=== PATIENT | male | born 1960 | race Caucasian/White ===

== ENCOUNTER → 2016-08-20 | Outpatient (CLI) | payer OTHER ==
[2016-08-20 11:03] LABS: CH 30.1; CHCM 34.2; HCT 43.5 % (39.0-53.0); HDW 2.43; HGB 14.7 gm/dL (13.0-17.5); MCH 29.9 pg (25.0-35.0); MCHC 33.9 g/dL (31.0-37.0); Mean Platelet Volume 7.5; RBC 4.93 m/uL (4.30-5.90); RDW 12.8 % (11.5-15.5); WBC 7.8 k/uL (3.8-10.6)
[2016-08-20 11:06] LABS: Anion Gap 11 mmol/L; Blood Urea Nitrogen 14 mg/dL (9-20); Carbon Dioxide 24 mmol/L (22-30); Chloride 105 mmol/L (98-107); Non-African American GFR(MDRD) 51 (>60 ml/min/1.73 sqM); Potassium 4.2 mmol/L (3.5-5.1); Sodium 140 mmol/L (137-145)
[2016-08-20 11:25] LABS: MCV 88.4 fL (80.0-100.0)
== END | disposition home or self-care (01) ==
LOC: LABWHC1 10:22
PROVIDERS: ATTEND Internal Medicine Interventional Cardiology
DX: I73.9 Peripheral vascular disease, unspecified (principal)
CPT/HCPCS: 80051; 82565; 84520; 85027

== ENCOUNTER 2016-08-24 06:21 | Day surgery (SDC) | payer BC, OTHER ==
[2016-08-23 10:26] VITALS: BMI 25.1
[2016-08-24] MEDS ORDERED: SODIUM CHLORIDE 0.9% 1,000 ML in EMPTY BAG 1 BAG IV ONE (06:22)
[2016-08-24] MEDS ORDERED: LISINOPRIL 20 MG TAB PO STA (06:53)
[2016-08-24] MEDS ORDERED: CILOSTAZOL 100 MG TAB PO STA (06:54)
[2016-08-24] MEDS ORDERED: LEVOTHYROXINE 50 MCG TAB PO ONE (07:00)
[2016-08-24] MEDS ORDERED: ALPRAZolam 0.25 MG TAB PO ONE (07:00)
[2016-08-24] MEDS ORDERED: ASPIRIN 325 MG TAB PO ONE (07:00)
[2016-08-24 07:09] VITALS: RESP 16; TEMP 97.8
[2016-08-24] MEDS: MIDAZOLAM 2 MG/2 ML VIAL IV ONE ×2 (08:02→08:04)
[2016-08-24] MEDS ORDERED: LIDOCAINE 2% INJ 20 MG/ML SQ ONE (08:04)
[2016-08-24] MEDS: VERAPAMIL SYRINGE (5 MG/10 ML) INTRAARTER ONE ×2 (08:08→08:19)
[2016-08-24] MEDS ORDERED: IODIXANOL 320 MG/ML 100 ML INTRAARTER ONE (08:19)
[2016-08-24] MEDS ORDERED: SODIUM CHLORIDE 0.9% 1,000 ML IV SCH (08:30)
[2016-08-24] MEDS ORDERED: CILOSTAZOL 100 MG TAB PO SCH (09:00)
--- NOTE | 2016-08-24 12:08 | IR ---
Fluoroscopy HISTORY: Pain in right leg 1.7 minutes fluoroscopy time supplied to the referring clinician. 121 intraoperative C-arm images do cument the procedure. See dictated report from cardiology.
[2016-08-24 13:26] VITALS: BP 101/62; PULSE 56
--- NOTE | 2016-08-25 09:19 | PCN ---
DATE OF PROCEDURE: 08/24/16 PERFORMING PHYSICIAN: Allen Barclay M.D. trolley collector. PROCEDURE PERFORMED: 1. Abdominal aortogram. 2. Bilateral lower extremity runoff. INDICATIONS: This is a pleasant 56 year old gentleman who sees Dr. Reynolds as an outpatient who was experiencing bilateral lower extremity discomfort. He underwent an arterial duplex study which showed severe PAD involving the right superficial femoral artery. The patient was brought today to undergo an abdominal aortogram and bilateral lower extremity runoff. APPROACH: Right radial artery. COMPLICATIONS: None. LEVEL OF SEDATION: Moderate with a sedation length of about 20 minutes. PROCEDURE DESCRIPTION: After obtaining informed consent, the patient was brought to the cardiac cathodic protection technician. The right radial artery was cannulated using micropuncture technique. The micropuncture wire passed easily, then I placed a 5 Algerian sheath in the right radial artery. Subsequently I did an abdominal aortogram and bilateral lower extremity runoff using 5 Algerian pigtail catheter which was initially placed at the level of the renal artery. Then it was advanced into above the bifurcation of the aorta to right and left common iliac arteries. The procedure was completed without any complications. PERIPHERAL ANGIOGRAM: 1. The aorta appeared to have mild disease only. 2. The common iliac arteries: The right and left common iliac arteries appeared to have mild disease only. 3. The internal iliac arteries: The right and left internal iliac arteries are patent. 4. The external iliac arteries: The right external iliac artery appeared to have a lesion seems to be in the range of 50-60%. The left external iliac artery appeared to be angiographically normal. 5. The common femoral arteries: The right and left common femoral arteries are angiographically normal. 6. The profunda: The right and left profunda are patent. 7. The SFA: The right SFA is occluded on short segment in the mid portion and left SFA is patent. 8. Popliteal: The right and left popliteal are patent. 9. Below the knee: Below the knee there are three vessel runoff below the knee bilaterally. CONCLUSION: 1. Intermediate disease involving the right external iliac artery. 2. Occluded right SFA. POSTPROCEDURE MANAGEMENT: 1. PROCESS LINE OPERATOR of the right SFA. 2. Further assessment of the right external artery with selective injection. 3. Follow up with the patient. VANNA
== END 2016-08-24 13:27 | disposition home or self-care (01) ==
LOC: CATHCVL 06:21
PROVIDERS: ATTEND Internal Medicine Interventional Cardiology
DX: I77.9 Disorder of arteries and arterioles, unspecified (principal); I73.9 Peripheral vascular disease, unspecified; I10 Essential (primary) hypertension; E78.5 Hyperlipidemia, unspecified; F17.210 Nicotine dependence, cigarettes, uncomplicated; Z79.82 Long term (current) use of aspirin; Z79.899 Other long term (current) drug therapy
CPT/HCPCS: 36200; 75625; 75716; 99152; C1894; J2001; J2250; Q9967; J1644

== ENCOUNTER → 2016-08-27 | Outpatient (CLI) | payer OTHER ==
[~2016-08-27] MED LIST: ALPRAZolam 0.25 MG TAB ONE; ASPIRIN 325 MG TAB ONE
--- NOTE | 2016-08-27 15:04 | MR ---
EXAMINATION TYPE: MR lumbar spine wo con DATE OF EXAM: 08/27/2016 COMPARISON: 06/06/2013 HISTORY: 56-year-old male lumbar disk deg, low back pain TECHNIQUE: Multiplanar, multisequence images of the lumbar spine were acquired. FINDINGS: Vertebral body heights are preserved. There is a component of mild congenital spinal canal stenosis within the lumbar spine with AP canal d imension of 1.2 cm. Conus medullaris is normal. Facet arthropathy mid to lower lumbar spine. There is new grade 1 retrolisthesis at L3-L4. Worsening multilevel degenerative disc disease with progressive disc desiccation and moderate disc he ight loss as well as diffuse disc bulges. Posterior annular fissures now seen at L2-L3, L3-L4, and L5-S1. Bulging discs have increased. At T12-L1, no spinal canal or foraminal stenosis. At L1-L2, there is a new broad-based posterior disc protrusion that mildly narrows the spinal canal. There is mild bilateral inferior foraminal narrowing. At L2-L3, there is diffuse disc bulge ligamentum flavum thickening with facet degenerative change. Th is circumferentially narrows the spinal canal without significant spinal canal stenosis. Changes resu lt in course and moderate bilateral neuroforaminal stenosis. At L3-L4, there is grade 1 retrolisthesis with facet arthropathy and ligamentum flavum thickening. In creasing disc bulge superimposed on the congenital canal narrowing. There is overall mild spinal afia l stenosis with worsening moderate right and moderate to severe left neuroforaminal stenosis. At L4-L5, worsened diffuse disc bulge. Facet arthropathy. There is similar moderate right and moderat e-to-severe left neuroforaminal stenosis though there is interval progression in sclerotic Modic type II endplate changes towards the left. Similar moderate type II fatty endplate change towards the rig ht. Disc material may abut both traversing L5 nerve roots at this level. Moderate spinal canal stenos is. At L5-S1, diffuse disc bulge with facet arthropathy. There is similar moderate left and hkha-pd-baslc ate right neuroforaminal stenosis without spinal canal stenosis. Atretic upper pole right kidney with a tiny cysts. No prevertebral or paravertebral soft tissue abnor mality otherwise seen. IMPRESSION: 1. Worsening, now moderate multilevel degenerative disc disease. There is new sclerotic endplate cowan ge towards the left at L4-L5 and increasing size of diffuse disc bulges superimposed on congenital sp inal canal stenosis. 2. The overall changes results in accentuated mild spinal canal stenosis at L1-L2, L2-L3, L3-L4, and moderate at L4-L5. These are worsened as compared to 06/06/2013. 3. Variable neuroforaminal stenoses as outlined above. Disc material at L4-L5 may abut both traversin g L5 nerve roots.
== END | disposition home or self-care (01) ==
LOC: RADMRIMAIN 12:06
PROVIDERS: ATTEND Family Medicine
DX: M48.06 Spinal stenosis, lumbar region (principal); M99.73 Connective tissue and disc stenosis of intervertebral foramina of lumbar region; M51.26 Other intervertebral disc displacement, lumbar region; M51.36 Other intervertebral disc degeneration, lumbar region
CPT/HCPCS: 72148

== ENCOUNTER → 2016-09-30 | Outpatient (CLI) | payer BC, OTHER ==
[2016-09-30 14:58] LABS: CH 31.2; CHCM 33.8; HCT 44.6 % (39.0-53.0); HDW 2.35; HGB 14.8 gm/dL (13.0-17.5); MCH 30.8 pg (25.0-35.0); MCHC 33.3 g/dL (31.0-37.0); MCV 92.8 fL (80.0-100.0); Mean Platelet Volume 7.9; RBC 4.81 m/uL (4.30-5.90); RDW 13.9 % (11.5-15.5); WBC 7.9 k/uL (3.8-10.6)
[2016-09-30 15:15] LABS: Anion Gap 7 mmol/L; Blood Urea Nitrogen 17 mg/dL (9-20); Carbon Dioxide 26 mmol/L (22-30); Chloride 106 mmol/L (98-107); Non-African American GFR(MDRD) 52 (>60 ml/min/1.73 sqM); Potassium 4.5 mmol/L (3.5-5.1); Sodium 139 mmol/L (137-145)
== END | disposition home or self-care (01) ==
LOC: LABPAT 14:31
PROVIDERS: ATTEND Internal Medicine Interventional Cardiology
DX: Z01.812 Encounter for preprocedural laboratory examination (principal); I73.9 Peripheral vascular disease, unspecified
CPT/HCPCS: 80051; 82565; 84520; 85027

== ENCOUNTER 2016-10-13 12:56 | Observation (INO) | payer OTHER ==
[2016-10-11 10:40] VITALS: BMI 24.2
[~2016-10-13 12:56] MED LIST changes: -ALPRAZolam 0.25 MG TAB ONE; -ASPIRIN 325 MG TAB ONE; +ASPIRIN 325 MG TAB PO ONE; +SODIUM CHLORIDE 0.9% 1,000 ML in EMPTY BAG 1 BAG IV ONE
[2016-10-13] MEDS ORDERED: niCARdipine 25 MG/10 ML VIAL ONE (14:54)
[2016-10-13] MEDS ORDERED: MIDAZOLAM 2 MG/2 ML VIAL IVP ONE (15:05)
[2016-10-13] MEDS ORDERED: LIDOCAINE 2% INJ 20 MG/ML SQ ONE (15:09)
[2016-10-13] MEDS ORDERED: HEPARIN SODIUM 1,000 UN/ML (10ML VL) IV ONE (15:14)
[2016-10-13] MEDS: MIDAZOLAM 2 MG/2 ML VIAL IVP ONE ×2 (15:21→16:05)
[2016-10-13] MEDS: HYDROmorphone 2 MG/ML 1 ML SYRINGE IVP ONE ×2 (15:45→16:23)
[2016-10-13] MEDS ORDERED: HEPARIN SODIUM 1,000 UN/ML (10ML VL) MISCELLANE ONE (16:19)
[2016-10-13] MEDS ORDERED: CLOPIDOGREL 75 MG TAB PO ONE (16:22)
[2016-10-13] MEDS ORDERED: NITROGLYCERIN 1000MCG/10ML SYRINGE INTRAARTER ONE (16:44)
[2016-10-13] MEDS ORDERED: niCARdipine Syringe (1,000 mcg/10 mL) INTRAARTER ONE (16:45)
[2016-10-13] MEDS ORDERED: IODIXANOL 320 MG/ML 100 ML INTRAARTER ONE (16:49)
[2016-10-13] MEDS ORDERED: SODIUM CHLORIDE 0.9% 1,000 ML IV SCH (17:00)
[2016-10-13] MEDS ORDERED: ONDANSETRON 4 MG/2 ML VIAL ONE (17:54)
[2016-10-13] MEDS ORDERED: ONDANSETRON 4 MG/2 ML VIAL IVP STA (18:17)
[2016-10-13] MEDS ORDERED: HYDROmorphone 1 MG/ML 1 ML SYRINGE IVP PRN ×2 (19:38)
[2016-10-13 20:38] LABS: Basophils # (A) 0.1 k/uL (0-0.2); Basophils % (A) 1 %; CH 30.2; CHCM 34.8; Eosinophils # (A) 0.1 k/uL (0-0.7); Eosinophils % (A) 1 %; HCT 39.4 % (39.0-53.0); HDW 2.39; HGB 14.2 gm/dL (13.0-17.5); Luc # (Auto) 0.14; Luc % (Auto) 1; Lymphocytes # (A) 1.6 k/uL (1.0-4.8); Lymphocytes % (A) 13 %; MCH 31.4 pg (25.0-35.0); Mean Platelet Volume 7.3; Monocytes # (A) 0.5 k/uL (0-1.0); Monocytes % (A) 4 %; Neutrophils # (A) 10.1 k/uL (1.3-7.7); Neutrophils % (A) 81 %; RBC 4.52 m/uL (4.30-5.90); RDW 12.8 % (11.5-15.5); WBC 12.5 k/uL (3.8-10.6); WBC (Perox) 12.79
[2016-10-13 20:40] LABS: MCV 87.1 fL (80.0-100.0)
[2016-10-13 20:52] LABS: Anion Gap 6 mmol/L; Blood Urea Nitrogen 16 mg/dL (9-20); Carbon Dioxide 24 mmol/L (22-30); Chloride 107 mmol/L (98-107); Glucose 122 mg/dL (74-99); Non-African American GFR(MDRD) >60 (>60 ml/min/1.73 sqM); Potassium 4.1 mmol/L (3.5-5.1); Sodium 137 mmol/L (137-145)
[2016-10-13] MEDS ORDERED: ATORVASTATIN 80 MG TAB PO SCH (21:00)
[2016-10-13] MEDS ORDERED: ATROPINE SULFATE 0.1 MG/ML 10ML SYRINGE ONE (21:49)
[2016-10-13] MEDS ORDERED: ONDANSETRON 4 MG/2 ML VIAL IVP PRN (22:07)
[2016-10-14 06:07] LABS: Non-African American GFR(MDRD) >60 (>60 ml/min/1.73 sqM)
[2016-10-14] MEDS ORDERED: LEVOTHYROXINE 50 MCG TAB PO SCH (06:30)
[2016-10-14] MEDS: LISINOPRIL 20 MG TAB PO SCH ×2 (06:54→08:46)
--- NOTE | 2016-10-14 08:04 | IR ---
EXAMINATION TYPE: IR stent intravas non coronary DATE OF EXAM: 10/13/2016 COMPARISON: NONE HISTORY: Peripheral vascular occlusive disease. Fluoroscopy was provided to the referring clinician. See dictated report from cardiology.
[2016-10-14 08:58] VITALS: BP 126/75; PULSE 70; RESP 20; TEMP 97.8
[2016-10-14] MEDS ORDERED: ASPIRIN 325 MG TAB PO SCH (09:00)
[2016-10-14] MEDS ORDERED: CLOPIDOGREL 75 MG TAB PO SCH (09:00)
--- NOTE | 2016-10-15 10:04 | OP ---
OPERATIVE REPORT Date of Surgery: DATE OF SERVICE: 10/14/2016. PERFORMING PHYSICIAN: Allen Barclay MD, driver examiner. PROCEDURE PERFORMED: 1. Selective right [id number] angiogram. 2. Selective right superficial femoral artery angiogram. 3. Selective left common femoral artery angiogram. 4. Atherectomy of the right superficial femoral artery using the Turbo Hawk device with extraction of plaque. 5. Successful balloon angioplasty of the right superficial femoral artery. 6. Successful stenting of the mid right superficial femoral artery using the 5.5 x 60 Supera stent with good angiographic results. 7. Successful stenting of the very proximal right superficial femoral artery using 6.0 x 40 Zilver PTX drug coated stent with good angiographic result. INDICATION: This is a very pleasant 56-year-old gentleman who sees Dr. Reynolds as an outpatient, who was experiencing right leg discomfort consistent with intermittent claudication. He underwent a peripheral angiogram which showed occluded right SFA in the mid portion and severe disease involving the proximal SFA. He was brought today to undergo an intervention. APPROACH: Left common femoral artery. COMPLICATIONS: None. LEVEL OF SEDATION: Moderate, 1 hour and 47 minutes. PROCEDURE DESCRIPTION: After obtaining informed consent, the patient was brought to the cardiac laborer filter plant. The left common femoral artery was cannulated using micropuncture technique under ultrasound guidance. The micropuncture passed easily. Then I placed a 6-Sudanese sheath in the left common femoral artery. Subsequently I did select the right SFA using an 0.35 advantage wire with the support of a 5-Sudanese rim catheter. After that, I did exchange my 6-Sudanese 11 cm sheath into a 6-Sudanese 70 cm sheath over the Advantage wire, and the tip of the sheath was positioned in the right common femoral artery. Anticoagulation was initiated using heparin, the patient was given weight based heparin but during the procedure we found out that the patient was did not receive the heparin because of the IV connection. He was given, at that point, 10,000 units of heparin IA. Subsequently I was able to cross the chronic total occlusion of the right SFA using 0.18 gold tip Glidewire with the backup support of 0.18 CXI catheter. I did prove that I was in the true lumen by injecting contrast through the catheter. After that, I did arterectomy within the CXI using the Turbo Hawk device. After that, I did balloon angioplasty initially using 4.0 x 120 mm regular balloon. Subsequently I did use 5.0 x 100 AngioSculpt balloon. Both balloons were inflated under their nominal pressure. After that, I did inflate 5.0 x 120 drug-coated balloon in the mid right SFA. The balloon was inflated to its nominal pressure for 3 minutes. The following angiogram showed what seems to be dissection/thrombus involving the mid to distal right SFA. I decided to cover that with a stent so I did deploy a 5.5 x 16 mm Supera stent. After that, I did balloon angioplasty on the distal edge of the stent using 5.0 x 40 mm balloon. The following angiogram showed good angiographic results. For the lesion in the very proximal right SFA, I did balloon angioplasty using 5.0 x 40 mm balloon again. The following angiogram showed dissection involving that segment, which I again decided to cover that with a stent, so I did deploy 6.0 x 40 Zilver PTX where the stent was positioned under fluoroscopic guidance and deployed under fluoroscopic guidance as well. I postdilated the stent using the 5.0 mm balloon. Following angiogram showed good angiographic results. The procedure was completed without any complication. After that, I did exchange my 70 cm 6-Sudanese sheath to 6-Sudanese 11 cm sheath over the Advantage wire. The procedure was completed without any complications. POSTPROCEDURE MANAGEMENT: 1. Dual anti-platelet therapy. 2. Risk factor modifications. 3. Follow up with the patient. MMBRITTNEY / NATALIAN: [id number] /
--- NOTE | 2016-10-15 18:55 | DS ---
DISCHARGE SUMMARY ADMISSION DATE: October 13, 2016. DISCHARGE DATE: October 14, 2016. BRIEF HISTORY: This is a pleasant 66-year-old gentleman who sees Dr. Reynolds as an outpatient. Was admitted to the hospital yesterday and underwent a successful crossing of chronic total occlusion of the right superficial femoral artery along with successful angioplasty. The procedure was performed from the left groin which is soft, nontender, and without any bruits. By the end of the procedure. I was able to feel bounding pulse in the right dorsalis pedis. The patient is going to be discharged home on dual anti-platelet therapy and statin and he follow up with Dr. Reynolds as an outpatient. MMODL / IJN: [id number] /
== END 2016-10-14 09:06 | disposition home or self-care (01) ==
LOC: CATHCVL 12:56 → 6SEL 16:54 → CATHCVL 10-14 00:23 → 6SEL 10-14 00:24
PROVIDERS: ADMIT Internal Medicine Interventional Cardiology; ATTEND Internal Medicine Interventional Cardiology
DX: I70.211 Atherosclerosis of native arteries of extremities with intermittent claudication, right leg (principal); I70.92 Chronic total occlusion of artery of the extremities; E78.5 Hyperlipidemia, unspecified; I10 Essential (primary) hypertension; Z79.899 Other long term (current) drug therapy; Z79.82 Long term (current) use of aspirin
CPT/HCPCS: 37227; 80048; 82565; 85025; 99152; 99153 ×6; G0378; C1769 ×7; C1894 ×2; C1725 ×3; C1714; C2623; C1876; C1874; J2001; J2250; J1170 ×2; Q9967; J2405; J1644

== ENCOUNTER → 2016-10-19 | Outpatient (CLI) | payer BC, OTHER ==
[2016-10-19 10:17] VITALS: BP 127/69; PULSE 54; RESP 16; TEMP 97.9
--- NOTE | 2016-10-19 10:42 | P.PN ---
Progress Note - Text This is a 56-year-old male with significant peripheral vascular disease and recent placement of a stent in the right iliac artery. The patient was then started on Plavix. He does complain of lower back pain and right hip pain. He used to have right leg pain however he does not have any leg pain at this point he also denies any paresthesia in the right lower extremity. Recently he had an MRI done on the lumbar spine which showed lumbar facet arthropathy and disc bulging with neural foraminal stenosis at the L4 5 level mostly. His pain gets worse by standing and walking for long distances. He does have tenderness in the lumbar paravertebral area bilaterally. There is no greater trochanter tenderness on the right side. Internal and external rotation of the right hip joint did not elicit any pain. At this point I think the patient has lower back pain due to lumbar spondylosis and facet osteoarthropathy there are no signs or symptoms for lumbar radiculopathy at this point. He may benefit from getting lumbar medial branch block bilaterally under fluoroscopic guidance. The patient was check with Dr. delgado placed the iliac artery stent in to see how soon it would be safe to hold Plavix for 5 days before this procedure. Meanwhile the patient takes Motrin 800 mg for his pain which does not control his pain well as he states and I told him also a combination of Motrin and Plavix may not be recommended because of the blood thinning effect of Motrin however he has to check with Dr. Terry and if he is okay with that this would be fine. I'll give him prescription for only 20 pills of tramadol to try for severe uncontrolled pain. The patient admits to using marijuana and I told him that this prescription will be only for 1 time until we start the process of the diagnostic procedure mentioned above on his lower back. PQRS measures: 1-Patient's medications are documented in the chart. 2-Tobacco use is positive, counseling given 3-Patient has not had a pneumococcal vaccine. 4-Advanced care planning discussed, patient unable to give 5-no Opioid contract was signed with the patient. 6-Pain positive, follow-up visit or procedure scheduled 7-Patient's blood pressure measured and documented within normal limits. 8-Patient's weight was measured, and body mass index ABOVE the normal limits, and counseling was done. Patient instructed to follow up with PCP. 9-Patient WAS NOT identified as an unhealthy alcohol user. Time with Patient: Greater than 30
== END ==
LOC: PNWHC3 09:48
PROVIDERS: ATTEND Anesthesiology
DX: M47.816 Spondylosis without myelopathy or radiculopathy, lumbar region (principal); M46.86 Other specified inflammatory spondylopathies, lumbar region
CPT/HCPCS: 99211

== ENCOUNTER 2017-03-11 04:11 | Observation (INO) | payer OTHER ==
[2017-03-11] MEDS ORDERED: SODIUM CHLORIDE 0.9% 1,000 ML IV SCH (05:00)
[2017-03-11 05:12] VITALS: BMI 23.3
[2017-03-11 05:19] VITALS: RESP 18
[2017-03-11] MEDS ORDERED: LISINOPRIL 20 MG TAB PO SCH (12:00)
[2017-03-11] MEDS ORDERED: CLOPIDOGREL 75 MG TAB PO SCH (12:00)
[2017-03-11] MEDS ORDERED: ASPIRIN 325 MG TAB PO SCH (12:00)
[2017-03-11] MEDS ORDERED: LEVOTHYROXINE 50 MCG TAB PO SCH (12:00)
--- NOTE | 2017-03-11 12:33 | HP ---
HISTORY AND PHYSICAL The patient is a pleasant 56-year-old white male who was recently seen in the emergency department at [facility]. He was found to be obtunded and taken in via ambulance to this facility. The patient had an altered mental status course after apparently eating a brownie like substance that was apparently made of cannabis. The patient is not known to have food of the substance and became very lethargic and sick to his stomach. He then began to pass out. He has never ingested things like this before. PAST MEDICAL HISTORY: Patient's past medical history is significant for GI bleed, hyperlipidemia, hypertension, hemorrhoids, Raynaud's disease. PAST SURGICAL HISTORY: His past surgical history is colonoscopy, appendectomy, tonsils and adenoids, hernia repair. SOCIAL: Positive for tobacco and history of marijuana use and currently ingestion marijuana. HOME MEDICATIONS: and Vasotec. ALLERGIES: No known drug allergies. REVIEW OF SYSTEMS: Denies any shortness of breath, chest pain, nausea, or vomiting. He denies any stroke or paralysis. Denies any muscle weakness or pain. He denies any diabetes. The rest of the review of systems is unremarkable. FAMILY HISTORY: Denies any family history. He admits to vascular disease in the right lower extremity with stent. PHYSICAL EXAM: The patient is alert and orientated x3. He is answering all questions appropriately at this time. Home medications include Synthroid, Vasotec, Plavix, Lipitor, and aspirin. HEENT: Head is normocephalic, atraumatic. NECK: Supple. No JVD. HEART: Regular rate and rhythm. LUNGS: Clear to auscultation. ABDOMEN: Soft, nontender. No rebound, rigidity, guarding. EXTREMITIES: No cyanosis, clubbing or jaundice. NEUROLOGICAL: Cranial nerves 2 through 12 grossly intact without any lateralizing deficits. He is alert and orientated x3. He is following commands. Tongue is midline without shift. IMPRESSIONS: 1. Acute altered mental status. 2. Peripheral vascular disease. 3. Hyperlipidemia. 4. Hypothyroidism. 5. Coronary artery disease and cardiovascular disease. 6. Ingestion of cannabis with altered mental status. PLAN: Plan is to admit patient for 23 hour observation. Neurological consultation to rule out any type of TIA. The patient seems to be back to baseline if cleared the patient may be able to go home today. The patient had some workup done at [facility] including blood work, CT scan, and cardiac monitoring. We will obtain copies of that for consultation. MMODL / IJN: [id number] /
[2017-03-11 16:27] VITALS: BP 119/72; PULSE 58; TEMP 97.5
[2017-03-11] MEDS ORDERED: ATORVASTATIN 80 MG TAB PO SCH (21:00)
--- NOTE | 2017-03-11 23:11 | P.CNNES ---
History of Present Illness Consult date: 03/11/17 Requesting physician: Edmund Barr Reason for Consult: TIA Chief complaint: Altered Mental Status History of Present Illness: Neurology is consulting on a 56 year old male who was transferred to [facility] from [facility]. Patient was found obtunded at home after eating a "brownie-like" substance that reportedly included cannabis. Patient also smoke marijuana as well within a few hours of eating the brownies. Patient is a medical marijuana card pike and engages in regular cannabis use. Patient had extensive workup and imaging at [facility]. Paper copies of chart and results were reviewed. On contact, the patient was seated upright in bed in no acute distress. Patient was AOx3 interactive and appropriate. Patient immediately stated that he would not stay for furhter testing if he had to remain in [facility] after another 90 minutes due to a birthday libertarian for a friend. Patient was explained that he would need further medical workup and observation. Review of Systems All systems not noted in HPI are negative. Past Medical History Past Medical History: COPD, Hyperlipidemia, Hypertension, Thyroid Disorder Additional Past Medical History / Comment(s): hemorrhoids, back pain, Raynaud's , PVD History of Any Multi-Drug Resistant Organisms: None Reported Past Surgical History: Adenoidectomy, Appendectomy, Hernia Repair, Tonsillectomy Additional Past Surgical History / Comment(s): bilateral hernia repair, RIGHT CAROTID ANGIOPLASTY, PTCA to right femoral artery 09/2016 Past Anesthesia/Blood Transfusion Reactions: No Reported Reaction Date of Last Stent Placement:: 10/13/2016 Past Psychological History: No Psychological Hx Reported Smoking Status: Current every day smoker Past Alcohol Use History: None Reported Additional Past Alcohol Use History / Comment(s): STARTED SMOKING AT AGE 16 SMOKES 1- 1 1/2 PPD Past Drug Use History: Marijuana Additional Drug Use History / Comment(s): DAILY USE, INSTRUCTED NOT TO USE 24 HRS PRIOR TO PROCEDURE -HAS MEDICAL CARD - Past Family History Father Family Medical History: Cancer Mother Family Medical History: No Reported History Medications and Allergies Home Medications Medication Instructions Recorded Confirmed Type Enalapril [Vasotec] 20 mg PO BID 06/22/13 03/11/17 History Aspirin 325 mg PO DAILY 08/23/16 03/11/17 History Atorvastatin [Lipitor] 80 mg PO HS 08/23/16 03/11/17 History Levothyroxine Sodium [Synthroid] 50 mcg PO DAILY 08/23/16 03/11/17 History Clopidogrel [Plavix] 75 mg PO DAILY #90 tab 10/14/16 03/11/17 Rx Allergies Allergy/AdvReac Type Severity Reaction Status Date / Time No Known Allergies Allergy Verified 03/11/17 07:46 Physical Examination - Vital Signs Vital Signs: Vital Signs Temp Pulse Resp BP Pulse Ox 03/11/17 16:00 97.5 F L 58 L 18 119/72 98 03/11/17 11:42 97.7 F 59 L 18 113/54 98 03/11/17 08:00 97.6 F 54 L 18 112/49 98 03/11/17 05:19 97.7 F 54 L 18 109/52 96 03/11/17 05:00 47 L 16 Intake and Output 03/11/17 03/11/17 03/12/17 14:59 22:59 06:59 Intake Total 480 Balance 480 Intake: Oral 480 Other: Voiding Method Urinal General appearance: Alert, no apparent distress. Head: Atraumatic, normocephalic, normal inspection Eyes: Well appearance, PERRLA, EOMI. Absent scleral icterus, conjunctival injection, nystagmus, periorbital swelling. Ear, nose and throat: Normal exam, mucous membranes moist Neck: Normal inspection, absent tenderness, lymphadenopathy. Respiratory: No increased work of breathing Cardiovascular: Regular rate, normal rhythm, normal heart sounds. Absent systolic murmur, diastolic murmur, rubs, gallops, clicks. GI/abdominal: Normal bowel sounds, nondistended, no tenderness, no guarding, no rebound, no rigidity. Extremities: All range of motion, normal capillary refill, no tenderness, pedal edema joint swelling, calf tenderness. Neurological: Alert and oriented 3, cranial nerves II through XII intact, no lateralizing weakness, no seizure activity noted on physical exam, no pronator drift and no nystagmus. Psychological: Mood and affect appropriate for setting. Assessment and Plan (1) Altered mental status Status: Acute Code(s): R41.82 - ALTERED MENTAL STATUS, UNSPECIFIED SNOMED Code(s): 079363477 Plan: 1. Altered mental status Patient does appear to have had altered mental status secondary to ingestion of extremely high amount cannabis. Patient reports returning to baseline. However , patient was explained the need for further workup and testing. Patient declined and stated that he would sign out AGAINST MEDICAL ADVICE if testing and further cup would go longer than 90 minutes because he had a birthday libertarian to attend. Patient was explained risks, benefits and alternatives of further testing. He states that he will remain hospital and wait for an EEG as requested. Status: Neurology will clear the patient for discharge from a neurological standpoint the patient's EEG is taken. Patient have further follow-up workup conducted in the outpatient setting the patient chooses to leave AMA. Contact our office with any questions or concerns. Patient to follow up in our office within 10 days of discharge the patient signed out AMA. MARKY Garrett-C Neurology For DR Mark Anthony Shelton MD I discussed the patients history, physical exam, diagnostic testing, lab work and imaging with Dr Shelton prior to implementing the plan above. He agrees with the plan as implemented prior to implementation.
== END 2017-03-11 14:37 | disposition home or self-care (01) ==
LOC: 3OBS 04:43
PROVIDERS: ADMIT Family Medicine; ATTEND Family Medicine
DX: R41.82 Altered mental status, unspecified (principal); T40.7X5A Adverse effect of cannabis (derivatives), initial encounter; I73.00 Raynaud's syndrome without gangrene; I10 Essential (primary) hypertension; E78.5 Hyperlipidemia, unspecified; K64.9 Unspecified hemorrhoids; E03.9 Hypothyroidism, unspecified; I25.10 Atherosclerotic heart disease of native coronary artery without angina pectoris; J44.9 Chronic obstructive pulmonary disease, unspecified; F17.210 Nicotine dependence, cigarettes, uncomplicated; Z79.899 Other long term (current) drug therapy; Z79.82 Long term (current) use of aspirin; Z79.02 Long term (current) use of antithrombotics/antiplatelets
CPT/HCPCS: 96360; 96361; G0378; G0379

== ENCOUNTER → 2018-11-11 | Outpatient (CLI) | payer OTHER ==
--- NOTE | 2018-11-12 08:57 | CT ---
EXAMINATION TYPE: CT angio neck DATE OF EXAM: 11/11/2018 HISTORY: carotid stenosis COMPARISON: None CT DLP: 265.6 mGycm. Automated Exposure Control for Dose Reduction was Utilized. TECHNIQUE: CTA scan of the neck is performed with IV Contrast, patient injected with 65 mL of Isovue 370, axial images are obtained, coronal and sagittal reformatted images are reviewed. Three-D recons tructed images are created on an independent workstation and reviewed. Source images are reviewed. FINDINGS: Carotid/Vascular Structures: There is a three-vessel arch. Atheromatous plaquing is at the bilateral carotid bifurcations and within the distal common carotid arteries. The left distal common carotid ar ihsan has severe narrowing measuring greater than 70%. Proximal internal carotid artery appears patent . Atheromatous plaquing has mild narrowing of approximately 50% of the distal right common carotid amira ry. IMPRESSION: 1. Severe stenosis within the distal left common carotid artery of greater than 70%. 2. Atheromatous plaquing present that of bifurcations bilaterally greater on the left. Significant st enosis of the left internal carotid artery is not evident.
== END | disposition home or self-care (01) ==
LOC: RADCTMAIN 11-04 08:47
PROVIDERS: ATTEND Internal Medicine Cardiovascular Disease
DX: I65.23 Occlusion and stenosis of bilateral carotid arteries (principal)
CPT/HCPCS: 70498; Q9967

== ENCOUNTER 2019-11-09 22:30 | Emergency (ER) | payer OTHER ==
[2019-11-09 23:20] LABS: Basophils # (A) 0.1 k/uL (0-0.2); Basophils % (A) 1 %; Eosinophils # (A) 0.3 k/uL (0-0.7); Eosinophils % (A) 3 %; HCT 44.9 % (39.0-53.0); HGB 15.5 gm/dL (13.0-17.5); Lymphocytes # (A) 3.2 k/uL (1.0-4.8); Lymphocytes % (A) 32 %; MCH 30.8 pg (25.0-35.0); MCHC 34.6 g/dL (31.0-37.0); Mean Platelet Volume 8.5; Monocytes # (A) 0.6 k/uL (0-1.0); Monocytes % (A) 6 %; Neutrophils # (A) 5.4 k/uL (1.3-7.7); Neutrophils % (A) 56 %; Platelet Count 182 k/uL (150-450); RBC 5.04 m/uL (4.30-5.90); RDW 13.1 % (11.5-15.5); WBC 9.7 k/uL (3.8-10.6)
[2019-11-09 23:28] LABS: Calcium 9.4 mg/dL (8.4-10.2)
[2019-11-09 23:29] LABS: Magnesium 1.9 mg/dL (1.6-2.3)
[2019-11-10] MEDS ORDERED: ACETAMINOPHEN TAB 325 MG TAB PO STA (00:05)
--- NOTE | 2019-11-10 00:22 | ED ---
Recheck HPI - General Chief Complaint: Recheck/Abnormal Lab/Rx Stated Complaint: High BP Time Seen by Provider: 11/09/19 22:50 Source: patient Mode of arrival: ambulatory Limitations: no limitations - History of Present Illness Initial Comments: This patient is 59-year-old man who presents to be evaluated for hypertension. The patient states that he does have history of hypertension with his blood pressure has been running higher than usual for number weeks. He did see his primary physician and was recently started on amlodipine 5 mg in addition to his previous antihypertensive regimen. Patient states he has been checking his blood pressure number times a day with his home monitor and that his blood pressure has been as high as 180. Patient states that he does occasionally have headaches associated with this, usually being in the morning. He states when he takes his blood pressure medication the headaches resolve. There mild intensity, whole head, without any neurologic symptoms. The patient denies any other symptoms related to the blood pressure. MD Complaint: other -: week(s) Returns Today for: other (Hypertension) Symptoms Since Prior Visit: no new symptoms Associated Symptoms: none - Related Data Home Medications Medication Instructions Recorded Confirmed Enalapril [Vasotec] 20 mg PO BID 06/22/13 03/11/17 Aspirin 325 mg PO DAILY 08/23/16 03/11/17 Atorvastatin [Lipitor] 80 mg PO HS 08/23/16 03/11/17 Levothyroxine Sodium [Synthroid] 50 mcg PO DAILY 08/23/16 03/11/17 Previous Rx's Medication Instructions Recorded Clopidogrel [Plavix] 75 mg PO DAILY #90 tab 10/14/16 Allergies Allergy/AdvReac Type Severity Reaction Status Date / Time No Known Allergies Allergy Verified 11/09/19 22:42 Review of Systems ROS Statement: Those systems with pertinent positive or pertinent negative responses have been documented in the HPI. ROS Other: All systems not noted in ROS Statement are negative. Constitutional: Denies: fever, chills Eyes: Denies: eye pain, vision change Respiratory: Denies: cough, dyspnea Cardiovascular: Denies: chest pain, palpitations, orthopnea, edema Gastrointestinal: Denies: abdominal pain, nausea, vomiting Genitourinary: Denies: dysuria, hematuria Musculoskeletal: Denies: back pain Skin: Denies: rash Neurological: Reports: as per HPI, headache. Denies: weakness, numbness, paresthesias, confusion Past Medical History Past Medical History: COPD, Hyperlipidemia, Hypertension, Thyroid Disorder Additional Past Medical History / Comment(s): hemorrhoids, back pain, Raynaud's, PVD History of Any Multi-Drug Resistant Organisms: None Reported Past Surgical History: Adenoidectomy, Appendectomy, Hernia Repair, Tonsillectomy Additional Past Surgical History / Comment(s): bilateral hernia repair, RIGHT CAROTID ANGIOPLASTY, PTCA to right femoral artery 09/2016 Past Anesthesia/Blood Transfusion Reactions: No Reported Reaction Date of Last Stent Placement:: 10/13/2016 Past Psychological History: No Psychological Hx Reported Smoking Status: Current every day smoker Past Alcohol Use History: None Reported Past Drug Use History: Marijuana - Past Family History Father Family Medical History: Cancer Mother Family Medical History: No Reported History General Exam Limitations: no limitations General appearance: alert, in no apparent distress Head exam: Present: atraumatic, normocephalic Eye exam: Present: normal appearance. Absent: scleral icterus, conjunctival injection ENT exam: Present: normal oropharynx Neck exam: Present: normal inspection Respiratory exam: Present: normal lung sounds bilaterally. Absent: respiratory distress, wheezes, rales, rhonchi, stridor Cardiovascular Exam: Present: regular rate, normal rhythm, normal heart sounds. Absent: systolic murmur, diastolic murmur, rubs, gallop GI/Abdominal exam: Present: soft. Absent: distended, tenderness, guarding, rebound, rigid, pulsatile mass Extremities exam: Present: normal inspection, normal capillary refill. Absent: pedal edema, calf tenderness Neurological exam: Present: alert, oriented X3. Absent: motor sensory deficit Skin exam: Present: warm, dry, intact, normal color. Absent: rash Course Vital Signs 11/09/19 11/09/19 11/10/19 22:39 23:50 00:52 Temperature 97.9 F 98.1 F 98.2 F Pulse Rate 52 L 50 L 53 L Respiratory 16 17 18 Rate Blood Pressure 215/89 166/84 163/83 O2 Sat by Pulse 99 97 98 Oximetry Medical Decision Making - Medical Decision Making Patient's 59-year-old man with asymptomatic hypertension. Blood pressure here not meeting criteria for acute lowering. We will have the patient follow with his physician, as she has remained moderately hypertensive will recommend that patient double his amlodipine dose and monitor blood pressure. Discussed retu rning immediately should he have any symptoms related to blood pressure - Lab Data Result diagrams: 11/09/19 23:09 11/09/19 23:09 Lab Results 11/09/19 11/09/19 Range/Units 23:09 23:09 WBC 9.7 (3.8-10.6) k/uL RBC 5.04 (4.30-5.90) m/uL Hgb 15.5 (13.0-17.5) gm/dL Hct 44.9 (39.0-53.0) % MCV 89.0 (80.0-100.0) fL MCH 30.8 (25.0-35.0) pg MCHC 34.6 (31.0-37.0) g/dL RDW 13.1 (11.5-15.5) % Plt Count 182 (150-450) k/uL Neutrophils % 56 % Lymphocytes % 32 % Monocytes % 6 % Eosinophils % 3 % Basophils % 1 % Neutrophils # 5.4 (1.3-7.7) k/uL Lymphocytes # 3.2 (1.0-4.8) k/uL Monocytes # 0.6 (0-1.0) k/uL Eosinophils # 0.3 (0-0.7) k/uL Basophils # 0.1 (0-0.2) k/uL Sodium 137 (137-145) mmol/L Potassium 4.0 (3.5-5.1) mmol/L Chloride 104 (98-107) mmol/L Carbon Dioxide 24 (22-30) mmol/L Anion Gap 9 mmol/L BUN 20 (9-20) mg/dL Creatinine 1.26 H (0.66-1.25) mg/dL Est GFR (CKD-EPI)AfAm 72 (>60 ml/min/1.73 sqM) Est GFR (CKD-EPI)NonAf 62 (>60 ml/min/1.73 sqM) Glucose 94 (74-99) mg/dL Calcium 9.4 (8.4-10.2) mg/dL Magnesium 1.9 (1.6-2.3) mg/dL - EKG Data -: EKG Interpreted by Ri EKG shows normal: sinus rhythm, axis (Normal), intervals (Normal), QRS complexes (Normal), ST-T waves (Normal) Rate: bradycardia (Rate 49 bpm) Disposition Clinical Impression: Hypertension Disposition: HOME SELF-CARE Condition: Good Instructions (If sedation given, give patient instructions): Hypertension (ED) Is patient prescribed a controlled substance at d/c from ED?: No Referrals: Edmund Barr DO [Primary Care Provider] - 1-2 days Allen Barclay MD [STAFF PHYSICIAN] - 1-2 days
[2019-11-10 00:55] VITALS: BP 163/83; PULSE 53; RESP 18; TEMP 98.2
== END 2019-11-10 00:52 | disposition home or self-care (01) ==
LOC: EC 22:30
DX: I10 Essential (primary) hypertension (principal); M54.9 Dorsalgia, unspecified; E07.9 Disorder of thyroid, unspecified; E78.5 Hyperlipidemia, unspecified; F17.200 Nicotine dependence, unspecified, uncomplicated; Z79.82 Long term (current) use of aspirin; Z79.890 Hormone replacement therapy; Z79.899 Other long term (current) drug therapy
CPT/HCPCS: 36415; 80048; 83735; 85025; 93005; 99283

== ENCOUNTER → 2020-07-23 | Outpatient (CLI) | payer OTHER ==
[2020-07-23 09:07] VITALS: BP 137/68; PULSE 55; RESP 18; TEMP 97.7
--- NOTE | 2020-07-23 09:33 | P.PAINCN ---
History of Present Illness - Reason for Consult Consult date: 07/23/20 - History of Present Illness This is 60 years old male with a chronic history of severe axial low back pain,started more than 5 years ago, he denies any initiating event, the pain is constant and increases with any activity interference with the quality of life, slots are due to to the lower extremity patient denies any numbness or tingling sensation, denies any fever or night sweats. Denies any change in the bowel mov ement or urination, patient continued to be active at home he tried to do activities of daily livings, he did not do physical therapy, but he tried to be very active at home. Past Medical History Past Medical History: COPD, Hyperlipidemia, Hypertension, Thyroid Disorder Additional Past Medical History / Comment(s): hemorrhoids, back pain, Raynaud's, PVD History of Any Multi-Drug Resistant Organisms: None Reported Past Surgical History: Adenoidectomy, Appendectomy, Hernia Repair, Tonsillectomy Additional Past Surgical History / Comment(s): bilateral hernia repair, RIGHT CAROTID ANGIOPLASTY, PTCA to right femoral artery 09/2016 two stents put in right leg. Past Anesthesia/Blood Transfusion Reactions: No Reported Reaction Date of Last Stent Placement:: 10/13/2016 Smoking Status: Current every day smoker - Past Family History Father Family Medical History: Cancer Mother Family Medical History: No Reported History Medications and Allergies Home Medications Medication Instructions Recorded Confirmed Type Enalapril [Vasotec] 20 mg PO BID 06/22/13 07/23/20 History Aspirin 325 mg PO DAILY 08/23/16 07/23/20 History Atorvastatin [Lipitor] 80 mg PO HS 08/23/16 07/23/20 History Levothyroxine Sodium [Synthroid] 50 mcg PO DAILY 08/23/16 07/23/20 History Clopidogrel [Plavix] 75 mg PO DAILY #90 tab 10/14/16 07/23/20 Rx Baclofen 10 mg PO DAILY 07/23/20 07/23/20 History Ibuprofen [Motrin] 800 mg PO DAILY 07/23/20 07/23/20 History amLODIPine [Norvasc] 5 mg PO DAILY 07/23/20 07/23/20 History Allergies Allergy/AdvReac Type Severity Reaction Status Date / Time No Known Allergies Allergy Verified 11/09/19 22:42 Physical Exam Vitals: Vital Signs Temp Pulse Resp BP Pulse Ox 07/23/20 09:00 97.7 F 55 L 18 137/68 97 Intake and Output 07/22/20 07/23/20 07/23/20 22:59 06:59 14:59 Other: Weight 70.632 kg Physical Examinations : -Constitutiona : Cooperative , not in acute distress . -HEENT : nech : supple , no Lymphadenopathy , normal thyroid size . : eyes : no ptosis , no icterus, no photophobia . - neurologic : Cranial nerve II to XII intact , no focal neurological deffecit . -psychatric : alert , oriented X 3 , appropriate affect , intact judgment and insight . -Lymphatic : no Lymphadenopathy . - musculoskeltal : Lumber spine moter stegnth lower extremities ,thigh and legs 5/5 Right side , 5/5 Left side deep tendon reflexes : normal Knee Jerk , normal ankle Jerk lumber facet Loading Test =positive Right , positive Left Range of motion of the lumbar spine Flexion 30 degrees, extension 10 degrees strait leg raising test = positive at 30 degree on the right side and is negative on the left side Fabere test= positive Right , and positive LT . tenderness over the Sacroiliac joint on the Right , and Left sides Results Comments: MRI of the lumbar spine multilevel lumbar degenerative disc disease and multilevel facet arthropathy Assessment and Plan Plan: Assessment and plan=1-lumbar spondylosis with lumbar facet arthropathy without myelopathy. 2-lumbar degenerative disc disease. Patient will be good candidate to have diagnostic medial branch block lumbar area at L3, L4, L5 bilaterally and possible RFA Time with Patient: Greater than 30 PQRS Measure Charge Sheet Measure #130: Documentation of Current Meds in Medical Chart: Patient's medications documented in chart Measure #226: Tobacco Use: Screen & Cessation Intervention: Pt screened for tobacco use AND intervention given Measure #111: Pneumonia Vaccination: Pneumococcal vaccine NOT administered or previously given Measure #47: Advance Care Plan: Advance care planning discussed & documented, pt chose/unable to give Measure #412: Opioid Treatment Agreement: No documentation of signed opioid treatment agreement Measure #408: Opioid Therapy Follow-up Evaluation: Patient had NO f/u eval minim um every 3 months during opioid therapy Measure #317: Preventitive Care & Scrn High Bld Press & F/U: Normal blood pressure, f/u not required Measure #128: Body Mass Index (BMI) Screening & Follow-up: BMI documented within normal parameters Measure #131: Pain Assessment & Follow-up: Follow-up scheduled Measure #431: Unhealthy Alcohol Use Preventative Care & Scrn: Patient not identified as an unhealthy alcohol user PQRS Narrative: Smoking Status Current every day smoker Narcotic Agreement Date Signed 06/22/13 Blood Pressure 137/68 Pain Intensity [Bilateral Back 5 ] Scale Used Numeric (1 - 10) Hx Alcohol Use (MH) Yes: 25+ years ago Home Medications: Ambulatory Orders Enalapril [Vasotec] 20 mg PO BID 06/22/13 Aspirin 325 mg PO DAILY 08/23/16 Atorvastatin [Lipitor] 80 mg PO HS 08/23/16 Levothyroxine Sodium [Synthroid] 50 mcg PO DAILY 08/23/16 Clopidogrel [Plavix] 75 mg PO DAILY #90 tab 10/14/16 Baclofen 10 mg PO DAILY 07/23/20 Ibuprofen [Motrin] 800 mg PO DAILY 07/23/20 amLODIPine [Norvasc] 5 mg PO DAILY 07/23/20
== END ==
LOC: PNWHC3 08:34
PROVIDERS: ATTEND Specialist
DX: M47.816 Spondylosis without myelopathy or radiculopathy, lumbar region (principal); M51.36 Other intervertebral disc degeneration, lumbar region; E78.5 Hyperlipidemia, unspecified; I10 Essential (primary) hypertension; J44.9 Chronic obstructive pulmonary disease, unspecified; F17.200 Nicotine dependence, unspecified, uncomplicated; Z79.899 Other long term (current) drug therapy
CPT/HCPCS: 99211

== ENCOUNTER 2020-08-14 08:02 | Day surgery (SDC) | payer OTHER ==
[2020-08-13 09:36] VITALS: BMI 25.0
[~2020-08-14 08:02] MED LIST changes: -ASPIRIN 325 MG TAB PO ONE; +LACTATED RINGERS 1,000 ML IV SCH; -SODIUM CHLORIDE 0.9% 1,000 ML in EMPTY BAG 1 BAG IV ONE
[2020-08-14 08:22] VITALS: TEMP 97.3
[2020-08-14] MEDS ORDERED: methylPREDNISolone ACETATE 40 MG/ML 1 ML VIAL ONE (08:57)
[2020-08-14] MEDS ORDERED: ROPIVACAINE 5MG/ML 20ML VIAL ONE (08:57)
--- NOTE | 2020-08-14 09:13 | P.PCN ---
Date of Procedure: 08/14/20 Procedure(s) Performed: PREOPERATIVE DIAGNOSIS : 1- Lumbar spondylosis with Facet Arthropathy without myelopathy . 2- Lumber degenerative disc disease POSTOPERATIVE DIAGNOSIS: 1- Lumbar spondylosis with Facet Arthropathy without myelopathy . 2- Lumber degenerative disc disease PROCEDURE: Diagnostic bilateral L3 , L4 , and L5 medial branch block under fluoroscopy guidance(fluoroscopy images available in the radiology Department ) ( To target the facet joint between Bilateral L4-5 , and L5-S1 ) ANESTHESIA:, Local infiltration with ropivacaine 0.5% 6 ml only . EBL: Minimal COMPLICATION: None PROCEDURE INDICATION: Chronic low back pain secondary to Facet arthropathy unresponsive to conservative treatment. PROCEDURE DESCRIPTION: the patient was seen and identified in the preop holding area , risks and benefits and possible complications of the procedure and alternative were discussed with the patient, and the patient agreed to proceed with the procedure and signed the consent and vital signs monitored during the procedure and fluoroscopy was used to maximize the benefit and accuracy of the needle placement , patient was taken to the procedure room and placed in prone position vital signs monitored in the back prepped with chlorhexidine X3 then under strict sterile technique using a right oblique fluoroscopy ,the junction of the transverse process and the superior articulating process of the right L3 , L4 , and L5 vertebra which corresponding to the fluoroscopy image of the eye of the Mathew dog on the block side for the medial branches and subsequently , after local infiltration of skin and subcu tissuies with Ropivacaine 0.5 % , one mL at each level ,then 25 -gauge Quincke-type needles , 3 needle was used , each one of them placed at the junction of the base of the transverse process and the superior articular process at the appropriate level, and the needle was advanced until the periosteum contacted, needle placement confirmed with AP oblique and lateral view and after appropriate needle placement confirmed, and after negative aspiration for heme and CSF and there was no paresthesia 1-1/2 mL of Ropivacaine 0.5% mixed with 20 mg Depo-Medrol , then half mL injected at each level after negative aspiration the needle subsequently removed and the same procedure repeated for the left side at left side at L3 , L4 and L5 levels. At the end of the procedure and the needles removed and a bandage applied after the skin was cleaned the cleaning solution patient taken to recovery room in stable condition and monitors in the recovery room for 20-30 minutes and discharged home in stable condition after discharge criteria met and patient will follow up with the pain clinic in 2-4 weeks
[2020-08-14 09:17] VITALS: RESP 18
[2020-08-14 09:32] VITALS: BP 130/70; PULSE 54
--- NOTE | 2020-08-14 09:40 | FL ---
EXAMINATION TYPE: FL guided pain mgmt statistic DATE OF EXAM: 08/14/2020 HISTORY: Fluoroscopy time 10 seconds of fluoroscopy provided. IMPRESSION: 1. Fluoroscopy time.
== END 2020-08-14 09:33 | disposition home or self-care (01) ==
LOC: ORPAIN 08:02
PROVIDERS: ATTEND Specialist
DX: G89.29 Other chronic pain (principal); M47.816 Spondylosis without myelopathy or radiculopathy, lumbar region; I25.10 Atherosclerotic heart disease of native coronary artery without angina pectoris; Z79.82 Long term (current) use of aspirin; Z79.02 Long term (current) use of antithrombotics/antiplatelets
CPT/HCPCS: 64493; 64494; J1030; J2795

== ENCOUNTER → 2020-09-10 | Outpatient (CLI) | payer OTHER ==
--- NOTE | 2020-09-10 10:10 | P.PN ---
Subjective Progress Note Date: 09/10/20 This is a 60-year-old gentleman with history of chronic low back pain with no radiation to the lower extremities and no paresthesia. The patient received a diagnostic lumbar medial branch block before the levels L4 5 and L5-S1 bilaterally which gave her at least 60% of pain relief. He was able to decrease his dependence on pain medications and was able to increase his level of activities. He felt this improvement immediately after the procedure. Patient denies new-onset weakness, bowel/bladder incontinence, or any other signs or symptoms of cauda equina syndrome. There are no signs of acute intoxication, and no indications of medication diversion or overuse. In addition to above, 13-point review of systems is also negative for chest pain, shortness of breath, changes in vision, changes in hearing, new onset weakness, abdominal pain, diarrhea, extreme fatigue, malaise, fever, skin changes, homicidal or suicidal ideation, or bowel or bladder incontinence. Vital Signs: Reviewed in EMR Gen: AAOx3, NAD HEENT: PERRLA,hearing grossly normal Pulm: resp unlabored Neck: supple, trachea midline Neuro exam of the lower extremities: Decreased knee flexion to 4 out of 5 bilaterally and the rest of the muscle strength exam is normal bilaterally Straight leg raising test: Mau's test: Range of motion of the lumbar spine: Facet loading test: Positive in the lumbar area bilaterally Tenderness in the paravertebral musculature: Neuro: CN II-XII grossly intact, Imaging: Reviewed in EMR/chart Assessment: Lumbar spondylosis without myelopathy Lumbar DDD Peripheral vascular disease with treatment with Plavix Plan: 1. Explanation: When patients on opioids, opioid and psychological risk scores were reviewed. Diagnoses, prognoses, and multiple treatment options including but not limited to physical therapy, interventional therapies, adjuvant medical therapies, narcotic medication therapies, and surgery were discussed with the patient and all questions were answered to the patient's satisfaction. 2. Opioid agreement:When patients are prescribed opoids through our clinic, opioid agreement is signed with the patient and the patient is warned not to use opioids while driving or before driving and not to combine opioids with benzodiazepines or alcohol. 3. Counseling: When patient is smoking or obese, the patient was counseled extensively on SMOKING CESSATION, BODY MASS INDEX, EXERCISE. Specifically, the patient was instructed regarding the importance of smoking cessation, obesity, and exercise in the context of both chronic pain and overall health. 4. Procedures: Schedule for the second diagnostic medial branch block for levels L4 5 and L5-S1 bilaterally . The patient will check with his physician about the safety of holding Plavix for 7 days before the procedure. 5. Consultations: None 6. Investigations: None 7. Medications: None prescribed from our clinic 8. Disposition: Proceed with the above-mentioned procedure as soon as possible. The patient is given instructions for her home exercises until he gets his procedure done. 9. Maps were reviewed and were appropriate. Objective - Vital Signs Vital signs: Intake & Output 09/09/20 09/10/20 09/10/20 18:59 06:59 18:59 Weight 68.353 kg
== END ==
CPT/HCPCS: 99211

== ENCOUNTER → 2020-10-27 | Outpatient (CLI) | payer OTHER ==
[2020-10-27 08:10] VITALS: BP 166/70; PULSE 53; RESP 18; TEMP 97.7
--- NOTE | 2020-10-27 08:51 | P.PN ---
Subjective Progress Note Date: 10/27/20 This is a follow-up visit for this 60 years old male with a chronic history of severe low back pain, is diagnosed with lumbar spondylosis with lumbar facet arthropathy without myelopathy, mostly we have done diagnostic medial branch block for area at L3,L 4, L5 Bilaterally, patient reported that his pain before the injection was 8-9/10 dropped to 0-1/10 after the block, and he was able to do more activity that day but he reported that the pain relief was only for short-term, she tried chiropractics the past which increased his pain for this reason he stopped the chiropractics, tried a home exercise without any benefit , he tried NSAID/Motrin without any benefit Objective - Vital Signs Vital signs: Vital Signs Temp 97.7 F 10/27/20 08:06 Pulse 53 L 10/27/20 08:06 Resp 18 10/27/20 08:06 BP 166/70 10/27/20 08:06 Pulse Ox 98 10/27/20 08:06 - Exam Physical Examinations : -Constitutiona : Cooperative , not in acute distress . -HEENT : nech : supple , no Lymphadenopathy , normal thyroid size . : eyes : no ptosis , no icterus, no photophobia . - neurologic : Cranial nerve II to XII intact , no focal neurological deffecit . -psychatric : alert , oriented X 3 , appropriate affect , intact judgment and insight . -Lymphatic : no Lymphadenopathy . - musculoskeltal : Lumber spine moter stegnth lower extremities ,thigh and legs 5/5 Right side , 5/5 Left side deep tendon reflexes : normal Knee Jerk , normal ankle Jerk lumber facet Loading Test =positive Right , positive Left Range of motion of the lumbar spine Flexion 30 degrees, extension 10 degrees strait leg raising test = positive at 30 degree on the right side and is negative on the left side Fabere test= positive Right , and positive LT . tenderness over the Sacroiliac joint on the Right , and Left sides Assessment and Plan Plan: : MRI of the lumbar spine multilevel lumbar degenerative disc disease and multilevel facet arthropathy Assessment and Plan Plan: Assessment and plan=1-lumbar spondylosis with lumbar facet arthropathy without myelopathy. 2-lumbar degenerative disc disease. Patient will be good candidate to have diagnostic medial branch block lumbar area at L3, L4, L5 bilaterally and possible RFA PQRS Measure Charge Sheet Measure #130: Documentation of Current Meds in Medical Chart: Patient's medications documented in chart Measure #226: Tobacco Use: Screen & Cessation Intervention: Pt screened for t obacco use AND intervention given Measure #111: Pneumonia Vaccination: Pneumococcal vaccine NOT administered or previously given Measure #47: Advance Care Plan: Advance care planning discussed & documented, pt chose/unable to give Measure #412: Opioid Treatment Agreement: No documentation of signed opioid treatment agreement Measure #408: Opioid Therapy Follow-up Evaluation: Patient had NO f/u eval minimum every 3 months during opioid therapy Measure #317: Preventitive Care & Scrn High Bld Press & F/U: Normal blood pressure, f/u not required Measure #128: Body Mass Index (BMI) Screening & Follow-up: BMI documented within normal parameters Measure #131: Pain Assessment & Follow-up: Follow-up scheduled Measure #431: Unhealthy Alcohol Use Preventative Care & Scrn: Patient not identified as an unhealthy alcohol user PQRS Narrative: Time with Patient: Less than 30
== END ==
LOC: PNWHC3 08:00
PROVIDERS: ATTEND Specialist
DX: M47.816 Spondylosis without myelopathy or radiculopathy, lumbar region (principal); M51.36 Other intervertebral disc degeneration, lumbar region; F17.200 Nicotine dependence, unspecified, uncomplicated
CPT/HCPCS: 99211

== ENCOUNTER → 2020-11-24 | Outpatient (CLI) | payer OTHER | LOC: PNWHC3 13:09 | PROVIDERS: ATTEND Specialist | DX: Z53.9 Procedure and treatment not carried out, unspecified reason (principal) ==

== ENCOUNTER → 2022-11-22 | Outpatient (CLI) | payer OTHER ==
--- NOTE | 2022-11-22 10:41 | XR ---
EXAMINATION TYPE: XR chest 2V DATE OF EXAM: 11/22/2022 COMPARISON: NONE TECHNIQUE: PA and lateral views submitted. HISTORY: COPD FINDINGS: The lungs are clear and there is no pneumothorax, pleural effusion, or focal pneumonia. Heart size normal and no overt failure. Osseous structures demonstrate hypertrophic and degenerative changes of the spine. Hyperinflation suggests COPD. Mild atherosclerotic change aorta. IMPRESSION: 1. No acute process.
== END | disposition home or self-care (01) ==
LOC: RADXRMAIN 10:25
PROVIDERS: ATTEND Family Medicine
DX: J44.9 Chronic obstructive pulmonary disease, unspecified (principal)
CPT/HCPCS: 71046

== ENCOUNTER → 2022-11-25 | Day surgery (SDC) | payer OTHER ==
[2022-11-22 09:48] VITALS: BMI 51.3
[~2022-11-25] MED LIST changes: +LIDOCAINE 1% (10MG/ML) FOR IV START INTRADERMA ONE; +LIDOCAINE 1% (10MG/ML) FOR IV START INTRADERMA PRN; +PROPOFOL 10 MG/ML 20 ML VIAL IV ONE
[2022-11-25 07:44] VITALS: TEMP 97.3
--- NOTE | 2022-11-25 08:01 | P.GSHP ---
History of Present Illness H&P Date: 11/25/22 Chief Complaint: Screening colonoscopy This a 62-year-old male who presents today for screening colonoscopy. Patient denies a significant GI complaints. Past Medical History Past Medical History: COPD, Hyperlipidemia, Hypertension, Thyroid Disorder Additional Past Medical History / Comment(s): Hemorrhoids, back pain, Raynaud's, PVD. History of Any Multi-Drug Resistant Organisms: None Reported Past Surgical History: Adenoidectomy, Appendectomy, Hernia Repair, Tonsillectomy Additional Past Surgical History / Comment(s): Bilateral hernia repair, RIGHT CAROTID ANGIOPLASTY, PTCA to right femoral artery 09/2016 two stents put in right leg, right laser eye surgery.cataract new lens Past Anesthesia/Blood Transfusion Reactions: No Reported Reaction Additional Past Anesthesia/Blood Transfusion Reaction / Comment(s): no blood transfusion Date of Last Stent Placement:: 10/13/2016 Smoking Status: Current every day smoker - Past Family History Father Family Medical History: Cancer Mother Family Medical History: No Reported History Medications and Allergies Home Medications Medication Instructions Recorded Confirmed Type Enalapril [Vasotec] 20 mg PO BID 06/22/13 11/22/22 History Aspirin 325 mg PO DAILY 08/23/16 11/22/22 History Atorvastatin [Lipitor] 80 mg PO HS 08/23/16 11/22/22 History Levothyroxine Sodium [Synthroid] 50 mcg PO DAILY 08/23/16 11/22/22 History Clopidogrel [Plavix] 75 mg PO DAILY #90 tab 10/14/16 11/22/22 Rx Ibuprofen [Motrin] 800 mg PO DAILY 07/23/20 11/22/22 History amLODIPine [Norvasc] 5 mg PO DAILY 07/23/20 11/25/22 History HYDROcodone/APAP 5-325MG [[place] 1 tab PO Q4HR PRN 11/22/22 11/22/22 History 5-325] Allergies Allergy/AdvReac Type Severity Reaction Status Date / Time No Known Allergies Allergy Verified 11/25/22 07:34 Surgical - Exam Vital Signs Temp Pulse Resp BP Pulse Ox 97.3 F L 52 L 16 148/66 97 11/25/22 07:40 11/25/22 07:40 11/25/22 07:40 11/25/22 07:40 10/12/23 07:40 - General well developed, well nourished, no distress - Eyes PERRL - ENT normal pinna - Neck no masses - Respiratory normal expansion - Cardiovascular Rhythm: regular - Abdomen Abdomen: soft, non tender Assessment and Plan Assessment: We'll perform screening colonoscopy.
--- NOTE | 2022-11-25 08:09 | P.OP ---
Date of Procedure: 11/25/22 Preoperative Diagnosis: Screening colonoscopy Postoperative Diagnosis: Mild diverticulosis Mild external hemorrhoids Procedure(s) Performed: Colonoscopy Anesthesia: MAC Surgeon: Julio Madrid Pathology: none sent Condition: stable Disposition: PACU Description of Procedure: The patient's placed on the endoscopy table in the lateral position. He received IV sedation. Digital rectal exam was performed. The prostate was symmetrical without nodules. This revealed a few external hemorrhoids. The fl exible colonoscope was then placed patient anus and passed throughout the entire colon. Ileocecal valve was visualized. Cecum, ascending and transverse colon appeared normal. The descending and sigmoid colon had a few scattered diverticuli. The scope was then brought back the rectum and this appeared normal. Scope withdrawn for patient.
[2022-11-25 08:19] VITALS: RESP 14
[2022-11-25 08:38] VITALS: BP 138/78; PULSE 46
== END ==
LOC: ORWHC2ENDO 07:12
PROVIDERS: ATTEND Surgery
DX: Z12.11 Encounter for screening for malignant neoplasm of colon (principal); K57.30 Diverticulosis of large intestine without perforation or abscess without bleeding; K64.4 Residual hemorrhoidal skin tags; I10 Essential (primary) hypertension; E78.5 Hyperlipidemia, unspecified; F17.200 Nicotine dependence, unspecified, uncomplicated; J44.9 Chronic obstructive pulmonary disease, unspecified; Z87.19 Personal history of other diseases of the digestive system; Z90.49 Acquired absence of other specified parts of digestive tract; Z90.89 Acquired absence of other organs; Z98.890 Other specified postprocedural states; Z79.82 Long term (current) use of aspirin; Z79.890 Hormone replacement therapy; Z79.02 Long term (current) use of antithrombotics/antiplatelets; Z79.1 Long term (current) use of non-steroidal anti-inflammatories (NSAID)
CPT/HCPCS: J2704; G0121

== ENCOUNTER → 2023-03-08 | Outpatient (CLI) | payer OTHER ==
--- NOTE | 2023-03-08 19:25 | US ---
EXAMINATION TYPE: US groin LT DATE OF EXAM: 03/08/2023 COMPARISON: NONE CLINICAL HISTORY: 62-year-old male with recent left inguinal hernia repair, pain, K40.90 UNIL INGUINA L HERNIA, W/O OBST OR GANGR, NO. TECHNIQUE: Multiple sonographic images were obtained along the left inguinal region, area of concern. FINDINGS: There is a protuberant shadowing area measuring approximately 1.5 cm at the left inguinal region, are a of pain, located medial to the iliac vessels and projecting approximately 1 cm anterior to the expe cted abdominal wall muscular fascia. No change during valsalva maneuvers. IMPRESSION: A shadowing 1.5 cm area protruding forward by 1 cm at the left inguinal area of concern, located medi al to the iliac vessels. Unclear if this represents surgical material, scar tissue, or a recurrent a nd fixed hernia. If concern for a recurrent hernia, a CT of the pelvis without and with valsalva can be considered.
== END | disposition home or self-care (01) ==
LOC: RADUSWWP 02-10 16:22
PROVIDERS: ATTEND Surgery
DX: K40.90 Unilateral inguinal hernia, without obstruction or gangrene, not specified as recurrent (principal)

== ENCOUNTER → 2023-04-22 | Outpatient (CLI) | payer OTHER ==
--- NOTE | 2023-04-22 11:48 | CT ---
EXAMINATION: CT SCAN OF THE PELVIS WITH INTRAVENOUS CONTRAST DATE OF EXAM: 04/22/2023 11:31 AM HISTORY: Left inguinal pain. COMPARISON: Left inguinal hernia.. TECHNIQUE: CT examination of the pelvis was performed following the intravenous administration of iod inated contrast. CT dose lowering techniques were used, to include: automated exposure control, adjus tment for patient size, and/or use of iterative reconstruction. 100 mL of Isovue 300 was given intrav enously. FINDINGS: PELVIS: GI Tract: There is mild sigmoid colonic diverticulosis without evidence of diverticulitis. (Note: S mall and Large bowel are only partially imaged as portions located in the abdomen are not included wi th Pelvis CT) Mesentery/Peritoneum: Normal. Vasculature: Severe vascular calcification and moderate plaque is seen throughout the abdominal aorta and iliac vessels bilaterally without evidence of aneurysmal dilation or dissection. Lymph Nodes: Normal. Abdominal Wall: Normal. Bladder: Normal. Reproductive: Normal. Musculoskeletal: Normal. Other: There are tiny indirect fat-containing inguinal hernias bilaterally. IMPRESSION: 1. Tiny fat-containing inguinal hernias bilaterally. 2. Diverticulosis without evidence of diverticulitis.
== END | disposition home or self-care (01) ==
LOC: RADCTMAIN 08:45
PROVIDERS: ATTEND Surgery
DX: K40.00 Bilateral inguinal hernia, with obstruction, without gangrene, not specified as recurrent (principal); K57.30 Diverticulosis of large intestine without perforation or abscess without bleeding
CPT/HCPCS: 72193; Q9967

== ENCOUNTER 2024-05-24 07:18 | Day surgery (SDC) | payer OTHER ==
[2024-05-23 10:06] VITALS: BMI 18.3
[~2024-05-24 07:18] MED LIST changes: +DEXAMETHASONE SOD PHOSPHATE 4 MG/ML 1 ML VIAL IV ONE; +HYDROmorphone 0.5 MG/0.5 ML SYRINGE IVP PRN; -LIDOCAINE 1% (10MG/ML) FOR IV START INTRADERMA ONE; +ONDANSETRON 4 MG/2 ML VIAL IVP ONE; -PROPOFOL 10 MG/ML 20 ML VIAL IV ONE; +droPERidol 2.5 MG/ML VIAL IVP PRN
[2024-05-24 08:11] VITALS: TEMP 98.2
[2024-05-24] MEDS: IV FLUID CONTINUATION 1,000 ML IV ONE (08:11)
[2024-05-24] MEDS: LACTATED RINGERS 1,000 ML IV SCH (08:17)
[2024-05-24] MEDS ORDERED: PROPOFOL 10 MG/ML 20 ML VIAL IV ONE (08:43)
[2024-05-24] MEDS ORDERED: GLYCOPYRROLATE 0.2 MG/ML 2 ML VIAL ONE (08:43)
--- NOTE | 2024-05-24 09:14 | P.OP ---
Date of Procedure: 05/24/24 Preoperative Diagnosis: Diverticulitis Left lower quadrant pain Postoperative Diagnosis: Hemorrhoids with GI bleed Mild diverticulosis Procedure(s) Performed: Colonoscopy Anesthesia: MAC Surgeon: Julio Madrid Pathology: none sent Condition: stable Disposition: PACU Description of Procedure: The patient was placed on the endoscopy table in the lateral position. He received IV sedation. Digital rectal exams performed. This revealed no internal/external hemorrhoids with some blood.. Flexible colonoscope was then placed patient anus passed throughout the entire colon. The ileocecal valve was visualized. The cecum, ascending and transverse colon appeared normal. In the descending sigmoid colon there is mild diverticular changes. The scope was then brought back in the rectum this appeared normal. Scope was withdrawn through the anus and there were bleeding hemorrhoids noted. Scope was withdrawn from the patient.
[2024-05-24 09:15] VITALS: PULSE 48
[2024-05-24 09:26] VITALS: BP 112/65
[2024-05-24 09:38] VITALS: RESP 16
== END 2024-05-24 10:12 | disposition home or self-care (01) ==
LOC: ORWHC2ENDO 07:18
PROVIDERS: ATTEND Surgery
DX: K64.9 Unspecified hemorrhoids (principal); K57.32 Diverticulitis of large intestine without perforation or abscess without bleeding
CPT/HCPCS: 45378; J2704; J1596